=== PATIENT | male | born 1970 | race Caucasian/White ===

== ENCOUNTER 2019-05-29 07:59 | Day surgery (SDC) | payer OTHER ==
[2019-05-26 12:57] VITALS: BMI 28.5
[2019-05-29] MEDS ORDERED: PROPOFOL 20 ML ONE ×2 (08:07)
[2019-05-29 11:52] VITALS: PULSE 89; TEMP 98.5
[2019-05-29 11:58] VITALS: BP 124/77
--- NOTE | 2019-05-31 12:50 | PATH ---
Surgical Pathology Report Patient Name: KORIN CLAUDIO [facility]. Rec. #: [id number] /Age/Gender: 1970 (Age: 48) / M Account: [id number] Location: [facility] Taken: 05/29/2019 Received: 05/29/2019 Reported: 05/31/2019 Physicians: Michel Beth M.D. Specimen(s) Received A: BX SECOND PORTION OF DUODENUM B: BX ANTRUM C: BX POLYP RIGHT COLON Clinical History GERD, screening Postoperative diagnosis: Duodenitis, gastritis, diverticulosis, colon polyp Final Diagnosis A. SECOND PORTION OF DUODENUM, BIOPSY: MILD CHRONIC DUODENITIS. B. GASTRIC ANTRUM, BIOPSY: MILD CHRONIC GASTRITIS. IMMUNOSTAIN IS NEGATIVE FOR H PYLORI ORGANISMS. C. RIGHT COLON, POLYP, BIOPSY: TUBULAR ADENOMA. Electronically Signed Jessica Hayden M.D. Gross Description A. Received in formalin, labeled "biopsy second portion of duodenum" are 2 garland, irregular portions of soft tissue averaging 0.3 cm. in greatest dimension. The specimens are submitted in toto in one cassette. B. Received in formalin, labeled "biopsy gastric antrum" are 2 garland, irregular portions of soft tissue measuring 0.4 and 0.5 cm. in greatest dimension. The specimens are submitted in toto in one cassette. C. Received in formalin, labeled "biopsy polyp right colon" is a garland, irregular portion of soft tissue measuring 0.8 cm. in greatest dimension. The specimen is submitted in toto in one cassette. /05/30/2019 saudi05/30/2019
== END 2019-05-29 10:18 | disposition home or self-care (01) ==
LOC: FASU-ENDO 07:59
PROVIDERS: ATTEND Internal Medicine Gastroenterology
PROC: 0DB98ZX Excision of Duodenum, Via Natural or Artificial Opening Endoscopic, Diagnostic (ICD-10-PCS; 2019-05-29)
PROC: 0DB78ZX Excision of Stomach, Pylorus, Via Natural or Artificial Opening Endoscopic, Diagnostic (ICD-10-PCS; 2019-05-29)
PROC: 0DBK8ZX Excision of Ascending Colon, Via Natural or Artificial Opening Endoscopic, Diagnostic (ICD-10-PCS; principal; 2019-05-29 09:07)
DX: Z12.11 Encounter for screening for malignant neoplasm of colon (principal); D12.2 Benign neoplasm of ascending colon; K29.80 Duodenitis without bleeding; K29.50 Unspecified chronic gastritis without bleeding; K57.30 Diverticulosis of large intestine without perforation or abscess without bleeding
CPT/HCPCS: 82962; 88305-TC; 88342-TC

== ENCOUNTER 2020-11-15 14:03 | Emergency (ER) | payer BC ==
[2020-11-16 14:07] LABS: SARS-CoV-2 NAA Not Detected (Not Detected)
== END 2020-11-15 14:53 | disposition home or self-care (01) ==
LOC: JVIRT 14:03
DX: Z20.822 Contact with and (suspected) exposure to COVID-19 (principal)
CPT/HCPCS: C9803; Q3014-GT; U0003; U0005